=== PATIENT | male | born 1960 | race Caucasian/White ===

== ENCOUNTER 2019-06-01 15:15 | Emergency (ER) | payer SELFPAY ==
[~2019-06-01] VITALS: Ht 180.3 cm; Wt 80.7 kg
--- NOTE | 2019-06-01 15:26 | NUR ---
ED Nurse Note: PT walked in to ED for C/O right hip pain from a surgery that he has about 3 months ago. PT reports he tripped and fell about 2 weeks ago and has pain. PT states he went to hospital after the fall and fracture was ruled out but the pain is still there and would like to have some pain medication
[2019-06-01 15:31] VITALS: BP 138/80
--- NOTE | 2019-06-01 15:39 | Emergency Room Report ---
History of Present Illness General Chief Complaint: Pain Source: Patient Present Illness HPI 59 YO Male presents to ED giving false identity information c/o 07/29 in severity right hip pain requesting pain medication refill. Pt. reports fall 2 weeks ago, had evaluation already at another ED after fall and did not have any fractures. This patient also reports switching to a new provider and not being able to receive refill until his first office visit. this pt. is well known to the ED with the same HPI each time reference recent hip surgery and a fall that exacerbated pain. Pt. reports today is his birthday and he is "just trying to get some relief". He denies ever giving alternate alias/names or 's when receiving treatment here in the past. Denies bruises , weakness or paresthesias. He reports he is ambulatory with cane. pain exacerbated upon walking. Pt. verbally declines imaging and states he is just here for med refill. Allergies: Coded Allergies: PENICILLINS (Verified Allergy, Unknown, 06/01/19) COVID-19 Screening Contact w/high risk pt: No Recent Travel to affected area: No Experienced COVID-19 symptoms?: No Patient History Past Medical History: see triage record Past Surgical History: none Pertinent Family History: none Reviewed Nursing Documentation: PMH: Agreed; PSxH: Agreed Nursing Documentation-PMH Past Medical History: No History, Except For Hx Cardiac Problems: Yes Hx Hypertension: No Hx Diabetes: No Review of Systems All Other Systems: negative except mentioned in HPI Physical Exam Vital Signs Date Time Temp Pulse Resp B/P (MAP) Pulse Ox O2 Delivery O2 Flow Rate FiO2 06/01/19 15:21 97.5 49 17 141/82 (101) 98 Room Air Sp02 EP Interpretation: reviewed, normal General Appearance: no apparent distress, alert, GCS 15, non-toxic Head: normocephalic, atraumatic Eyes: bilateral eye normal inspection, bilateral eye PERRL ENT: hearing grossly normal, normal voice Neck: full range of motion Respiratory: lungs clear, normal breath sounds, speaking full sentences Cardiovascular #1: regular rate, rhythm Musculoskeletal: back normal, normal range of motion, gait/station normal - initially with limp, however upon leaving ED after refusing to sign DC paperwork pt. was able to lift his heavy duffle bag and walk with a normal gait at a fast pace ., non-tender, other Neurologic: alert, motor strength/tone normal, oriented x3, sensory intact, responsive, speech normal Psychiatric: judgement/insight normal Lymphatic: no adenopathy Medical Decision Making PA Attestation Dr. Barrett is my supervising Physician whom patient management has been discussed with. Diagnostic Impression: Primary Impression: Medication refill Additional Impressions: Identity problem Encounter for medical screening examination Medication requested by patient but not prescribed or administered Drug-seeking behavior ER Course PLEASE NOTE THIS PT. PREVIOUS VISITS UNDER THE NAME ADAM WOODARD with of 1960 59 YO Male presents to ED giving false identity information c/o 07/29 in severity right hip pain requesting pain medication refill. Pt. reports fall 2 weeks ago, had evaluation already at another ED after fall and did not have any fractures. This patient also reports switching to a new provider and not being able to receive refill until his first office visit. this pt. is well known to the ED with the same HPI each time reference recent hip surgery and a fall that exacerbated pain. Pt. reports today is his birthday and he is "just trying to get some relief". He denies ever giving alternate alias/names or 's when receiving treatment here in the past. Denies bruises , weakness or paresthesias. He reports he is ambulatory with cane. pain exacerbated upon walking. Pt. verbally declines imaging and states he is just here for med refill. Ddx considered but are not limited to: drug seeking, OD, MSK injury, Septic Joint, Hardware Malfunction just to name a few. Vital signs: are WNL, pt. is afebrile H&PE are most consistent with habitual non- emergent request for medication refill. Falsification of identity. non-compliance with follow up instructions. The patient is nontoxic in appearance and in no acute distress. He is noted to be able to fully weight-bear with a normal gait upon exiting the emergency department. ORDERS: none required at this time, the diagnosis is clinical ED INTERVENTIONS: None required at this time. -I do not identify an emergent condition at this time. With current presentation , pt. is stable for close outpatient follow up and conservative treatment. D/ w pt. to return promptly to ED with worsening or new symptoms.- Pt. verbalizes' understanding and agreement with proposed treatment plan.proposed treatment plan. DISCHARGE: At this time pt. is stable for d/c to home. Will provide printed patient care instructions, and any necessary prescriptions. Care plan and follow up instructions have been discussed with the patient prior to discharge. Last Vital Signs Date Time Temp Pulse Resp B/P (MAP) Pulse Ox O2 Delivery O2 Flow Rate FiO2 06/01/19 15:31 97.8 86 17 138/80 98 Room Air Disposition: HOME, SELF-CARE Condition: Stable Patient Instructions: Medical Screening Exam Additional Instructions: IT has been determined that you are not having a medical emergency at this time and are stable for outpatient treatment and follow up. Take any previously medications as directed. Follow up with a Primary Care Provider in 3-5 days, even if your symptoms have resolved. --Please review list of primary care clinics, if you do not already have a primary care provider Return sooner to ED if new symptoms occur, or current symptoms become worse. - Please note that this Emergency Department Report was dictated using [employer] public health technology software, occasionally this can lead to erroneous entry secondary to interpretation by the dictation equipment. Migdalia Jose Jun 01, 2019 15:39
[2019-06-01 16:06] VITALS: BP 144/80
--- NOTE | 2019-06-01 16:06 | NUR ---
ER DISCHARGE NOTE: Patient is cleared to be discharged per ERMD, pt is aox4, on room air, with stable vital signs. pt was given dc and prescription instructions, pt was able to verbalize understanding, pt id band removed without complications. pt is able to ambulate with steady gait. pt took all belongings.
== END 2019-06-01 16:47 | disposition home or self-care (01) ==
LOC: EMR 15:35
DX: M25.551 Pain in right hip (principal); Z76.0 Encounter for issue of repeat prescription; Z76.5 Malingerer [conscious simulation]; Z88.0 Allergy status to penicillin
CPT/HCPCS: 99282